=== PATIENT | female | born 2000 | race Caucasian/White ===

== ENCOUNTER 2024-01-08 18:01 | Emergency (ER) | payer OTHER ==
[2024-01-08 18:14] VITALS: TEMP 98.6; BMI 39.3
[2024-01-08] MEDS ORDERED: ACETAMINOPHEN 500 MG TABLET (FP) ONE (18:58)
[2024-01-08 19:06] LABS: BASO % 0.8 % (0-2.0); HEMATOCRIT 34.4 % (32.4-45.2); HEMOGLOBIN 11.3 GM/dL (10.7-15.3); LYMPH % 13.6 % (8-40); MCH 26.7 pg (25.7-33.7); MCHC 32.9 g/dl (32.0-36.0); MEAN CELL VOLUME 81.2 fl (80-96); MEAN PLT VOLUME 8.1 fl (7.5-11.1); MONO % 5.4 % (3.8-10.2); NEUT % 79.2 % (42.8-82.8); PLATELET COUNT 315 10^3/uL (134-434); RBC 4.24 M/mm3 (3.60-5.2); RDW 14.4 % (11.6-15.6); WHITE BLOOD COUNT 12.5 K/mm3 (4.0-10.0)
[2024-01-08 19:12] LABS: PROTHROMBIN TIME (PATIENT) 11.3 SEC (9.7-13.0)
[2024-01-08 19:14] LABS: ACTIVATED PTT 27.6 SECONDS (25.2-36.5)
[2024-01-08] MEDS: ACETAMINOPHEN 500 MG TABLET (FP) PO ONE (19:14)
[2024-01-08 19:17] LABS: HCG,QUALITATIVE URINE Positive
[2024-01-08 19:20] LABS: EPI CELLS >36 /uL (0-25.1); HYALINE CASTS 2 /uL (0-3.1); PH,URINE 5.5 (5.0-8.0); URINE APPEARANCE CLEAR; URINE BACTERIA 367 /uL (0-1359); URINE BILIRUBIN NEGATIVE (NEGATIVE); URINE COLOR YELLOW; URINE GLUCOSE (UA) NEGATIVE (NEGATIVE); URINE KETONE 1+ (NEGATIVE); URINE LEUK ESTERASE TRACE (NEGATIVE); URINE NITRITE NEGATIVE (NEGATIVE); URINE PROTEIN TRACE (NEGATIVE); URINE RBC 7 /uL (0-23.9); URINE UROBILINOGEN 0.2 mg/dL (0.2-1.0); URINE WBC 23 /uL (0-25.8)
[2024-01-08 20:18] LABS: HIV INTERPRETATION NEGATIVE (NEGATIVE)
[2024-01-08] MEDS ORDERED: CEPHALEXIN MONOHYDRATE 500 MG CAPSULE (UD) ONE (20:56)
[2024-01-08 21:03] VITALS: BP 110/63; PULSE 63; RESP 16
[2024-01-08] MEDS: CEPHALEXIN MONOHYDRATE 500 MG CAPSULE (UD) PO ONE (21:04)
== END 2024-01-08 21:03 | disposition home or self-care (01) ==
LOC: JER 18:01
DX: O26.892 Other specified pregnancy related conditions, second trimester (principal); R10.84 Generalized abdominal pain; M54.50 Low back pain, unspecified; O23.12 Infections of bladder in pregnancy, second trimester; Z3A.16 16 weeks gestation of pregnancy
CPT/HCPCS: 36415; 76801-TC; 81003; 84702; 84703; 85025; 85610; 85730; 86803; 86850; 86900; 86901; 87086; 87389; 99284-25

== ENCOUNTER 2024-05-12 15:20 | Inpatient (IN) | payer OTHER ==
[2024-05-12] MEDS: LACTATED RINGERS SOLUTION 1,000 ML/1,000 ML INFUS.BAG IV SCH (16:10)
[2024-05-12] MEDS ORDERED: PENICILLIN G POTASSIUM 5,000,000 UNIT/250 ML BAG IVPB ONE (16:37)
[2024-05-12 17:09] LABS: BASO % 0.7 % (0-2.0); EOS % 0.8 % (0-4.5); HEMATOCRIT 34.2 % (32.4-45.2); LYMPH % 11.3 % (8-40); MCH 25.9 pg (25.7-33.7); MCHC 32.2 g/dl (32.0-36.0); MEAN CELL VOLUME 80.6 fl (80-96); MEAN PLT VOLUME 9.1 fl (7.5-11.1); MONO % 5.5 % (3.8-10.2); NEUT % 81.7 % (42.8-82.8); PLATELET COUNT 293 10^3/uL (134-434); RBC 4.24 M/mm3 (3.60-5.2); RDW 15.6 % (11.6-15.6); WHITE BLOOD COUNT 13.3 K/mm3 (4.0-10.0)
[2024-05-12 17:25] LABS: ACTIVATED PTT 24.6 SECONDS (25.2-36.5)
[2024-05-12 17:26] VITALS: BMI 43.3
[2024-05-12] MEDS: BETAMET ACET/BETAMET NA PH 30 MG/5 ML VIAL IM STA (17:30)
[2024-05-12 17:32] LABS: POTASSIUM 4.1 mmol/L (3.5-5.1)
[2024-05-12 17:34] LABS: BLOOD UREA NITROGEN 11.7 mg/dL (7-18); CALCIUM 9.4 mg/dL (8.5-10.1)
[2024-05-12] MEDS: PENICILLIN G POTASSIUM 5,000,000 PRE-DOCK IN NS 250 ML IVPB ONE (17:36)
[2024-05-12 17:37] LABS: CREATININE 0.5 mg/dL (0.55-1.3)
[2024-05-12] MEDS ORDERED: BETAMET ACET/BETAMET NA PH 30 MG/5 ML VIAL ONE (17:38)
[2024-05-12 18:59] LABS: COCAINE, UR NEGATIVE (NEGATIVE); METHADONE, UR NEGATIVE (NEGATIVE); URINE BENZODIAZEPINES NEGATIVE (NEGATIVE)
[2024-05-12 19:01] LABS: URINE BARBITURATES NEGATIVE (NEGATIVE)
[2024-05-12 19:02] LABS: OPIATES, URI NEGATIVE (NEGATIVE); PHENCYCLIDINE,URINE NEGATIVE (NEGATIVE); URINE AMPHETAMINES NEGATIVE (NEGATIVE)
[2024-05-12] MEDS: PENICILLIN G POTASSIUM 5,000,000 (5Mm) UNIT VIAL IVPB SCH (19:07)
[2024-05-12 19:27] LABS: INR 0.97 (0.83-1.09); PROTHROMBIN TIME (PATIENT) 10.7 SEC (9.7-13.0)
[2024-05-12] MEDS: PENICILLIN G POTASSIUM 2,500,000 UNIT in SODIUM CHLORIDE 100 ML IVPB SCH (21:10)
[2024-05-12] MEDS ORDERED: OXYTOCIN 30 UNITS in 0.9% NS 30 UNIT/500 ML INFUS.BAG IVPB ONE (21:26)
[2024-05-12] MEDS: OXYTOCIN 30 UNITS in 0.9% NS 30 UNIT/500 ML INFUS.BAG IVPB SCH (21:35)
[2024-05-12] MEDS ORDERED: TERBUTALINE SULFATE 1 MG/1 ML VIAL SQ ONE (23:00)
[2024-05-13] MEDS ORDERED: BUTORPHANOL TARTRATE 2 MG/ML VIAL ONE (00:15)
[2024-05-13] MEDS ORDERED: PROMETHAZINE HCL 25 MG/1 ML VIAL ONE (00:15)
[2024-05-13] MEDS: BUTORPHANOL TARTRATE 2 MG/ML VIAL IVPB PRN (00:20)
[2024-05-13] MEDS: PROMETHAZINE HCL 25 MG/1 ML VIAL IVPB PRN (00:20)
[2024-05-13] MEDS ORDERED: OXYTOCIN 20 UNITS in 0.9% NS 20 UNIT/1,000 ML INFUS.BAG IV ONE (03:11)
[2024-05-13] MEDS: OXYTOCIN 20 UNITS in 0.9% NS 20 UNIT/1,000 ML INFUS.BAG IV SCH (03:20)
[2024-05-13] MEDS ORDERED: BENZOCAINE 20% 57 GM BOTTLE TP PRN (03:42)
[2024-05-13] MEDS ORDERED: BISACODYL 10 MG SUPP.RECT RC PRN (03:42)
[2024-05-13] MEDS ORDERED: WITCH HAZEL 50% (TUCKS) 40 PAD/JAR PAD TP PRN (03:42)
[2024-05-13] MEDS ORDERED: BENZOCAINE 28 GM HEMORRHOIDAL OINTMENT TP PRN (03:42)
[2024-05-13] MEDS ORDERED: oxyCODONE HCL 5 MG TABLET PO PRN (03:42)
[2024-05-13] MEDS ORDERED: METHYLERGONOVINE MALEATE 0.2 MG/1 ML AMP IM PRN (03:42)
[2024-05-13] MEDS: IBUPROFEN 600 MG TABLET (FP) PO PRN (04:05)
[2024-05-13 04:06] LABS: CORD BASE EXCESS -5.1 mmol/L (0-2); CORD PCO2 42.6 mmHg (30-78); CORD pH 7.31 (7.14-7.44)
[2024-05-13 04:08] LABS: CORD HCO3 22.6 mmHg (20-29); CORD PCO2 66.2 mmHg (30-78); CORD pH 7.151 (7.14-7.44)
[2024-05-13] MEDS: ACETAMINOPHEN 325 MG TABLET (FP) PO PRN (05:45)
[2024-05-13] MEDS: PRENATAL VITAMINS W/ FOLIC ACID TABLET (FP) PO SCH (09:35)
[2024-05-13 12:35] LABS: POC NITRAZINE POS
[2024-05-14 07:13] LABS: BASO % 0.4 % (0-2.0); EOS % 0.7 % (0-4.5); HEMATOCRIT 29.1 % (32.4-45.2); HEMOGLOBIN 9.4 GM/dL (10.7-15.3); LYMPH % 15.6 % (8-40); MCH 26.3 pg (25.7-33.7); MCHC 32.3 g/dl (32.0-36.0); MEAN CELL VOLUME 81.4 fl (80-96); MEAN PLT VOLUME 8.7 fl (7.5-11.1); MONO % 6.8 % (3.8-10.2); NEUT % 76.5 % (42.8-82.8); PLATELET COUNT 244 10^3/uL (134-434); RBC 3.58 M/mm3 (3.60-5.2); RDW 16.3 % (11.6-15.6); WHITE BLOOD COUNT 14.6 K/mm3 (4.0-10.0)
[2024-05-14] MEDS: DIPHTH,PERTUSS(ACELL),TET 0.5 ML DISP.SYRIN IM ONE (11:32)
[2024-05-14 20:43] VITALS: RESP 17
[2024-05-14] MEDS ORDERED: SENNOSIDES/DOCUSATE COMBO (SENNA PLUS) TABLET (UD) PO PRN (22:00)
[2024-05-15 09:12] VITALS: BP 129/58; PULSE 87; TEMP 97.9
== END 2024-05-15 13:20 | disposition home or self-care (01) | DRG 560 ==
LOC: JDEL 15:20 → JLDR 16:20 → J3W 05-13 05:43
PROVIDERS: ADMIT Obstetrics & Gynecology; ATTEND Obstetrics & Gynecology
PROC: 10E0XZZ Delivery of Products of Conception, External Approach (ICD-10-PCS; principal; 2024-05-13)
DX: O60.14X0 Preterm labor third trimester with preterm delivery third trimester, not applicable or unspecified (principal); O42.913 Preterm premature rupture of membranes, unspecified as to length of time between rupture and onset of labor, third trimester; O99.820 Streptococcus B carrier state complicating pregnancy; Z3A.35 35 weeks gestation of pregnancy; Z37.0 Single live birth
CPT/HCPCS: 36415; 36600; 59409; 80048; 80307; 82803; 83986-QW; 85025; 85610; 85730; 86780; 86850; 86900; 86901; 87340; 88307-TC; 90715; 96372

== ENCOUNTER 2024-11-22 21:11 | Emergency (ER) | payer OTHER ==
[2024-11-22 21:26] VITALS: BP 130/63; PULSE 83; RESP 18; TEMP 98.4; BMI 40.2
[2024-11-22 22:59] LABS: ABSOLUTE IMMATURE GRANULOCYTES 0.05 x10^3/uL (0.0-0.031); BASOPHILS # 0.07 x10^3/uL (0.01-0.08); EOSINOPHIL % 1.6 % (0.7-5.8); EOSINOPHILS # 0.22 x10^3/uL (0.04-0.36); MCHC 30.7 g/dl (32.2-35.5); MEAN CELL VOLUME 77.4 fl (79.4-94.8); MEAN PLT VOLUME 9.8 fl (9.4-12.3); MONOCYTE # 0.81 x10^3/uL (0.24-0.86); MONOCYTE % 5.9 % (4.7-12.5); RDW 15.0 % (12.1-16.5)
[2024-11-22 23:17] LABS: GLUCOSE,RANDOM 109.0 mg/dL (74-106)
[2024-11-22 23:18] LABS: TOT PROT 7.8 g/dl (6.4-8.2)
[2024-11-22 23:19] LABS: CO2 20.0 mmol/L (21-32)
[2024-11-22 23:20] LABS: ALK PHOS 101.0 U/L (40-150)
[2024-11-22 23:23] LABS: CREATININE 0.76 mg/dL (0.55-1.3); SGOT/AST 31.0 U/L (5-34); SGPT/ALT 36.0 U/L (0-55)
[2024-11-22 23:44] LABS: HCV DIAGNOSTIC IN-HOUSE W/RFLX NON-REACTIVE (NONREACTIVE); HIV INTERPRETATION NEGATIVE (NEGATIVE)
== END 2024-11-23 01:11 | disposition home or self-care (01) ==
LOC: JER 21:11
DX: R06.02 Shortness of breath (principal); R07.81 Pleurodynia
CPT/HCPCS: 36415; 71046-TC-FY; 80053; 83735; 84703; 85025; 85379; 86803; 87389; 93005; 93010; 99285-25